=== PATIENT | male | born 1955 | race Caucasian/White ===

== ENCOUNTER 2016-06-12 10:33 | Outpatient (RCR) | payer MEDICAID ==
--- OUTSIDE RECORDS SUMMARY | 2016-03-30 12:31 | XMS REPORT | Continuity of Care Document ---
Author Author [facility] Organization [facility] Address Unknown Phone Unavailable Care Team Providers Care An/Sqq [id number] Sonar System Journeyman Name Role Phone [facility] PCP Insurance Providers Payer Name Policy Number Subscriber Name Relationship [employer] [id number] Evan Martell 20 Self / Same As Patient Advance Directives Directive Response Recorded Date/Time Advance Directives No 08/11/14 5:48am Health Care Power of Supervisor Advice No 08/11/14 5:48am Organ Donor No 08/11/14 5:48am Resuscitation Status Full Code 08/11/14 5:48am Chief Complaint and Reason for Visit Chief Complaint CHEST PAIN W/AMI,LIVER METS Reason for Visit Metastasis to liver with unknown primary site Chest pain Adenocarcinoma Problems Medical Problems Problem Onset Date Status Metastasis to liver with unknown primary site Unknown Active Chest pain Unknown Active Adenocarcinoma 08/16/2014 Active Medications Medication Dose Route Sig Days/Qty Instructions Order Date Discontinued Date Status [None] 06/27/09 08/11/14 Discontinued Amoxicillin 1 Each PO THREE TIMES A DAY 10 Days 09/08/11 08/11/14 Discontinued Butalb/Acetaminophen/Caffeine (Esgic Plus) 1 Each PO Q4HR PRN 10 Qty 08/11/14 Discontinued Omeprazole 20 Mg PO TWICE A DAY 08/13/14 08/16/14 Discontinued [Aspirin] 81 Mg PO DAILY 30 Qty 08/16/14 Active [Atorvastatin Calcium] 80 Mg PO BEDTIME 30 Qty 08/16/14 Active Clopidogrel Bisulfate 75 Mg PO DAILY 30 Qty 08/16/14 Active Metoprolol Tartrate 12.5 Mg PO TWICE A DAY 60 Qty 08/16/14 Active Pantoprazole Sodium 20 Mg PO DAILY 30 Qty 08/16/14 Active Nitroglycerin 0.4 Mg SL DIRECTED 30 Days Take 1 under the tongue for chest pain, may repeat every five minutes 08/16/14 Active Social History Social History Problem Response Recorded Date/Time Alcohol Use Denies Use 08/11/2014 5:47am Recreational Drug Use Y MARIJUANA 08/11/2014 5:47am Recent Foreign Travel No 08/11/2014 5:52am Recent Infectious Disease Exposure No 08/11/2014 5:47am Smoking Status Current Everyday Smoker 08/11/2014 5:45am Do you dip or chew tobacco? No 08/11/2014 5:45am Query Response Start Date Stop Date Smoking Status Current Everyday Smoker Hospital Discharge Instructions Patient Instructions Physician Instructions New, Converted or Re-Newed RX: Other (call in atorvastatin and ASA others would allow me to transmit) Goal/Follow Up Appt: Follow up with Dr. Perea after you have a PET scan and a port placed Follow up with Dr. Jules to have a port placed Discharge Diet: Other Diet (Diet per Dr. Jules) Plan of Care Discharge Date 08/16/14 4:30pm Disposition 30 STILL A PATIENT Instructions/Education Provided Myocardial Infarction (DC) Colonoscopy (DC) Forms Provided PDI Surgical Prescriptions See Medications Section Follow-up Orders PET Whole Body PET Whole Body Referrals MEERA LINDQUIST MD (Unspecified) Address: [address] [place] [address]&[place] [address] Reason(s) for Referral: 08/31/14 2pm Functional Status Query Response Date Recorded Patient Orientation Person Place Time Situation August 16, 2014 6:55pm Comprehension Ability Understands Concepts August 13, 2014 4:47pm Allergies, Adverse Reactions, Alerts Allergen Type Severity Reaction Status Last Updated NKANo Known Allergies Allergy Mild Active 06/27/09 Immunizations Name Given Type influenza, split (incl. purified surface antigen) 08/16/14 Administered influenza, split (incl. purified surface antigen) 08/16/14 Administered Vital Signs Acute Vital Signs Vital Response Date/Time Temperature (Fahrenheit) 97.7 degrees F (97.6 - 99.5) Temperature (Calculated Celsius) 36.37799 degrees C (36.4 - 37.5) Temperature Source Temporal Pulse Rate (adult) 50 bpm (60 - 90) Respiratory Rate 18 bpm (12 - 24) O2 Sat by Pulse Oximetry 99 % (88 - 100) Blood Pressure 112/76 mm Hg Pain Pain Intensity 0 Height (Feet) 6 feet Height (Inches) 1 inches Height (Calculated Centimeters) 185.209571 cm Weight (Pounds) 162 pounds Weight (Ounces) 8.0 oz Weight (Calculated Grams) 18836.965 gm Weight (Calculated Kilograms) 73.743763 kilograms Calculated BMI 20.45 Results Laboratory Results Test Name Result Units Flags Reference Collection Date/Time Result Date/ Time Comments White Blood Count 5.5 10^3/uL 4.3-11.0 08/16/2014 3:39am 08/16/2014 4: 36am Red Blood Count 4.42 10^6/uL 4.35-5.85 08/16/2014 3:39am 08/16/2014 4: 36am Hemoglobin 12.2 G/DL L 13.3-17.7 08/16/2014 3:39am 08/16/2014 4:36am Hematocrit 36 % L 40-54 08/16/2014 3:39am 08/16/2014 4:36am Mean Corpuscular Volume 81 FL 80-99 08/16/2014 3:39am 08/16/2014 4: 36am Mean Corpuscular Hemoglobin 28 PG 25-34 08/16/2014 3:39am 08/16/2014 4: 36am Mean Corpuscular Hemoglobin Concent 34 G/DL 32-36 08/16/2014 3:39am 4:36am Red Cell Distribution Width 12.8 % 10.0-14.5 08/16/2014 3:39am 2014 4:36am Platelet Count 195 10^3/uL 130-400 08/16/2014 3:39am 08/16/2014 4:36am Mean Platelet Volume 12.7 FL H 7.4-10.4 08/16/2014 3:39am 08/16/2014 4: 36am Neutrophils (%) (Auto) 64 % 42-75 08/16/2014 3:3908/16/2014 4:36am Lymphocytes (%) (Auto) 20 % 12-44 08/16/2014 3:39am 08/16/2014 4:36am Monocytes (%) (Auto) 12 % 0-12 08/16/2014 3:3908/16/2014 4:36am Eosinophils (%) (Auto) 4 % 0-10 08/16/2014 3:39am 08/16/2014 4:36am Basophils (%) (Auto) 1 % 0-10 08/16/2014 3:08/16/2014 4:36am Neutrophils # (Auto) 3.5 X 10^3 1.8-7.8 08/16/2014 3:39am 08/16/2014 4: 36am Lymphocytes # (Auto) 1.1 X 10^3 1.0-4.0 08/16/2014 3:39am 08/16/2014 4: 36am Monocytes # (Auto) 0.7 X 10^3 0.0-1.0 08/16/2014 3:39am 08/16/2014 4: 36am Eosinophils # (Auto) 0.2 10^3/uL 0.0-0.3 08/16/2014 3:39am 08/16/2014 4 :36am Basophils # (Auto) 0.0 10^3/uL 0.0-0.1 08/16/2014 3:3908/16/2014 4: 36am Prothrombin Time 13.2 SEC 12.2-14.7 08/12/2014 3:32am 08/12/2014 4: 11am INR Comment 1.0 0.8-1.4 08/12/2014 3:32am 08/12/2014 4:11am INTERPRETIVE DATA SUGGESTED THERAPEUTIC RANGE FOR INR'S: VENOUS THROMBOSIS, PULMONARY EMBOLISM, OR PREVENTION OF SYSTEMIC EMBOLISM (EG. IN ATRIAL FIBRILLATION): 2.0 - 3.0 MECHANICAL PROSTHETIC HEART VALVES: 2.5 - 3.5* *NOTE: INR'S UP TO 4.5 MAY BE NECESSARY IN SELECTED GROUPS OF HIGH RISK PATIENTS. [employer]ST PH[employer]IC[employer] CONSENSUS CONFERENCE ON ANTITHROMBOTIC THERAPY (2000). Activated Partial Thromboplast Time 73 SEC H 24-35 08/12/2014 11:01am 11:29am D-Dimer 1.66 UG/ML H 0.00-0.49 08/11/2014 12:00am 08/11/2014 12:44am Sodium Level 139 MMOL/L 135-145 08/15/2014 11:14am 08/15/2014 11:37am Potassium Level 3.9 MMOL/L 3.6-5.0 08/15/2014 11:14am 08/15/2014 11: 37am Chloride Level 105 MMOL/L 98-107 08/15/2014 11:14am 08/15/2014 11:37am Carbon Dioxide Level 24 MMOL/L 21-32 08/15/2014 11:14am 08/15/2014 11: 37am Blood Urea Nitrogen 12 MG/DL 7-18 08/15/2014 11:14am 08/15/2014 11: 37am Creatinine 0.89 MG/DL 0.60-1.30 08/15/2014 11:14am 08/15/2014 11:37am BUN/Creatinine Ratio 13 08/15/2014 11:14am 08/15/2014 11:37am Estimat Glomerular Filtration Rate > 60 08/15/2014 11:14am 2014 11:37am GFR INTERPRETIVE DATA UNITS FOR ESTIMATED GFR (eGFR): mL/min/1.73 M2 REFERENCE RANGE FOR ESTIMATED GFR (eGFR) eGFR NORMAL eGFR >60 MODERATELY DECREASED eGFR 30-59 SEVERLY DECREASED eGFR 15-29 KIDNEY FAILURE <15 (OR DIALYSIS) Glucose Level 98 MG/DL 70-105 08/15/2014 11:14am 08/15/2014 11:37am Calcium Level 9.0 MG/DL 8.5-10.1 08/15/2014 11:14am 08/15/2014 11:37am Magnesium Level 2.1 MG/DL 1.8-2.4 08/11/2014 12:00am 08/11/2014 12: 44am Total Bilirubin 1.3 MG/DL H 0.1-1.0 08/13/2014 4:50am 08/13/2014 5:31am Alkaline Phosphatase 110 U/L 40-136 08/13/2014 4:50am 08/13/2014 5: 31am Aspartate Amino Transf (AST/SGOT) 58 U/L H 5-34 08/13/2014 4:50am 2014 5:31am Alanine Aminotransferase (ALT/SGPT) 19 U/L 0-55 08/13/2014 4:50am 08/13 5:31am Troponin I 9.19 NG/ML CH <0.30 08/13/2014 4:45pm 08/13/2014 5:14pm RESULT CALLED TO SRIDHAR AT 1715. RESULTS READ BACK: YES. Troponin I < 0.30 NG/ML <0.30 08/11/2014 12:00am 08/11/2014 12:49am Myoglobin 74.1 NG/ML 10.0-92.0 08/11/2014 12:00am 08/11/2014 12:49am Total Protein 6.3 G/DL L 6.4-8.2 08/13/2014 4:50am 08/13/2014 5:31am Albumin 3.6 G/DL 3.2-4.5 08/13/2014 4:50am 08/13/2014 5:31am Triglycerides Level 121 MG/DL <150 08/12/2014 3:32am 08/12/2014 4:14am Cholesterol Level 219 MG/DL H < 200 08/12/2014 3:32am 08/12/2014 4:14am HDL Cholesterol 28 MG/DL L 40-60 08/12/2014 3:32am 08/12/2014 4:14am LDL Cholesterol Direct 186 MG/DL H 1-129 08/12/2014 3:32am 08/12/2014 4: 14am VLDL Cholesterol 24 MG/DL 5-40 08/12/2014 3:32am 08/12/2014 4:14am Lipase 31 U/L 8-78 08/11/2014 12:00am 08/11/2014 1:45am Procedures Procedure Status Date Provider(s) Anesthesia for 30 minutes completed 08/14/14 RUPINDER JULES DO Flexible sigmoidoscopy completed 08/14/14 RUPINDER JULES DO Tracing only of electrocardiogram completed 08/11/14 MEENA ALY DO Tracing only of electrocardiogram completed 08/11/14 MEERA LINDQUIST MD Tracing only of electrocardiogram completed 08/12/14 MEERA LINDQUIST MD Tracing only of electrocardiogram completed 08/12/14 MEERA LINDQUIST MD Tracing only of electrocardiogram completed 08/13/14 MEENA ALY DO Encounters Encounter Location Date/Time Discharged Inpatient Via [facility] 08/11/14 4:15am Recent Diagnosis Metastasis to liver with unknown primary site Chest pain Adenocarcinoma
[2016-03-30 13:03] LABS: BASOPHILS % (AUTO) 1 % (0-10); EOSINOPHILS # (AUTO) 0.2 10^3/uL (0.0-0.3); EOSINOPHILS % (AUTO) 3 % (0-10); LYMPHOCYTES # (AUTO) 1.4 X 10^3 (1.0-4.0); LYMPHOCYTES % (AUTO) 20 % (12-44); MEAN CORPUSCULAR HEMOGLOBIN 29 PG (25-34); MEAN CORPUSCULAR HGB CONC 33 G/DL (32-36); MEAN CORPUSCULAR VOLUME 87 FL (80-99); MEAN PLATELET VOLUME 10.5 FL (7.4-10.4); MONOCYTES # (AUTO) 0.5 X 10^3 (0.0-1.0); MONOCYTES % (AUTO) 7 % (0-12); NEUTROPHILS # (AUTO) 4.7 X 10^3 (1.8-7.8); NEUTROPHILS % (AUTO) 70 % (42-75); PLATELET COUNT 229 10^3/uL (130-400); RED BLOOD COUNT 3.89 10^6/uL (4.35-5.85); WHITE BLOOD COUNT 6.7 10^3/uL (4.3-11.0)
[2016-03-30 13:28] LABS: ALANINE AMINOTRANSFERASE 15 U/L (0-55); ALBUMIN 3.7 G/DL (3.2-4.5); ANION GAP 11 MMOL/L (5-14); ASPARTATE AMINO TRANSFERASE 21 U/L (5-34); BILIRUBIN,TOTAL 0.7 MG/DL (0.1-1.0); BLOOD UREA NITROGEN 11 MG/DL (7-18); BUN/CREATININE RATIO 12; CALCIUM 8.9 MG/DL (8.5-10.1); CARBON DIOXIDE 21 MMOL/L (21-32); CHLORIDE 110 MMOL/L (98-107); CREATININE SERUM 0.89 MG/DL (0.60-1.30); GFR ESTIMATED > 60; GLUCOSE 98 MG/DL (70-105); MAGNESIUM 2.1 MG/DL (1.8-2.4); POTASSIUM 3.8 MMOL/L (3.6-5.0); SODIUM 142 MMOL/L (135-145); TOTAL PROTEIN 5.9 G/DL (6.4-8.2)
[2016-04-06 09:45] LABS: BASOPHILS % (AUTO) 0 % (0-10); EOSINOPHILS # (AUTO) 0.2 10^3/uL (0.0-0.3); EOSINOPHILS % (AUTO) 4 % (0-10); LYMPHOCYTES # (AUTO) 1.3 X 10^3 (1.0-4.0); LYMPHOCYTES % (AUTO) 27 % (12-44); MEAN CORPUSCULAR HEMOGLOBIN 29 PG (25-34); MEAN CORPUSCULAR HGB CONC 33 G/DL (32-36); MEAN CORPUSCULAR VOLUME 88 FL (80-99); MEAN PLATELET VOLUME 10.5 FL (7.4-10.4); MONOCYTES # (AUTO) 0.4 X 10^3 (0.0-1.0); MONOCYTES % (AUTO) 8 % (0-12); NEUTROPHILS # (AUTO) 2.9 X 10^3 (1.8-7.8); NEUTROPHILS % (AUTO) 61 % (42-75); PLATELET COUNT 225 10^3/uL (130-400); RED BLOOD COUNT 4.15 10^6/uL (4.35-5.85); RED CELL DISTRIBUTION WIDTH 17.4 % (10.0-14.5); WHITE BLOOD COUNT 4.8 10^3/uL (4.3-11.0)
[2016-04-06 10:19] LABS: ANION GAP 11 MMOL/L (5-14); BLOOD UREA NITROGEN 14 MG/DL (7-18); BUN/CREATININE RATIO 17; CALCIUM 9.1 MG/DL (8.5-10.1); CARBON DIOXIDE 22 MMOL/L (21-32); CHLORIDE 107 MMOL/L (98-107); CREATININE SERUM 0.81 MG/DL (0.60-1.30); GFR ESTIMATED > 60; GLUCOSE 115 MG/DL (70-105); POTASSIUM 4.2 MMOL/L (3.6-5.0); SODIUM 140 MMOL/L (135-145)
[2016-04-14 09:48] LABS: BASOPHILS % (AUTO) 1 % (0-10); EOSINOPHILS # (AUTO) 0.1 10^3/uL (0.0-0.3); EOSINOPHILS % (AUTO) 2 % (0-10); LYMPHOCYTES # (AUTO) 1.2 X 10^3 (1.0-4.0); LYMPHOCYTES % (AUTO) 21 % (12-44); MEAN CORPUSCULAR HEMOGLOBIN 29 PG (25-34); MEAN CORPUSCULAR HGB CONC 33 G/DL (32-36); MEAN CORPUSCULAR VOLUME 87 FL (80-99); MEAN PLATELET VOLUME 10.2 FL (7.4-10.4); MONOCYTES # (AUTO) 0.5 X 10^3 (0.0-1.0); MONOCYTES % (AUTO) 9 % (0-12); NEUTROPHILS # (AUTO) 3.9 X 10^3 (1.8-7.8); NEUTROPHILS % (AUTO) 67 % (42-75); PLATELET COUNT 248 10^3/uL (130-400); RED BLOOD COUNT 4.08 10^6/uL (4.35-5.85); RED CELL DISTRIBUTION WIDTH 17.5 % (10.0-14.5); WHITE BLOOD COUNT 5.8 10^3/uL (4.3-11.0)
[2016-04-14 10:11] LABS: ALANINE AMINOTRANSFERASE 16 U/L (0-55); ALBUMIN 3.7 G/DL (3.2-4.5); ANION GAP 8 MMOL/L (5-14); ASPARTATE AMINO TRANSFERASE 18 U/L (5-34); BILIRUBIN,TOTAL 0.7 MG/DL (0.1-1.0); BLOOD UREA NITROGEN 11 MG/DL (7-18); BUN/CREATININE RATIO 13; CALCIUM 8.8 MG/DL (8.5-10.1); CARBON DIOXIDE 26 MMOL/L (21-32); CHLORIDE 106 MMOL/L (98-107); CREATININE SERUM 0.83 MG/DL (0.60-1.30); GFR ESTIMATED > 60; GLUCOSE 94 MG/DL (70-105); POTASSIUM 3.7 MMOL/L (3.6-5.0); SODIUM 140 MMOL/L (135-145)
[2016-04-20 10:01] LABS: BASOPHILS % (AUTO) 1 % (0-10); EOSINOPHILS # (AUTO) 0.2 10^3/uL (0.0-0.3); EOSINOPHILS % (AUTO) 4 % (0-10); LYMPHOCYTES # (AUTO) 1.2 X 10^3 (1.0-4.0); LYMPHOCYTES % (AUTO) 32 % (12-44); MEAN CORPUSCULAR HEMOGLOBIN 29 PG (25-34); MEAN CORPUSCULAR HGB CONC 33 G/DL (32-36); MEAN CORPUSCULAR VOLUME 88 FL (80-99); MONOCYTES # (AUTO) 0.2 X 10^3 (0.0-1.0); MONOCYTES % (AUTO) 6 % (0-12); NEUTROPHILS # (AUTO) 2.2 X 10^3 (1.8-7.8); NEUTROPHILS % (AUTO) 58 % (42-75); PLATELET COUNT 235 10^3/uL (130-400); RED BLOOD COUNT 4.21 10^6/uL (4.35-5.85); RED CELL DISTRIBUTION WIDTH 16.7 % (10.0-14.5); WHITE BLOOD COUNT 3.8 10^3/uL (4.3-11.0)
[2016-04-20 11:02] LABS: ANION GAP 7 MMOL/L (5-14); BLOOD UREA NITROGEN 17 MG/DL (7-18); BUN/CREATININE RATIO 21; CALCIUM 9.6 MG/DL (8.5-10.1); CARBON DIOXIDE 27 MMOL/L (21-32); CHLORIDE 107 MMOL/L (98-107); GFR ESTIMATED > 60; GLUCOSE 97 MG/DL (70-105); POTASSIUM 4.7 MMOL/L (3.6-5.0); SODIUM 141 MMOL/L (135-145)
[2016-04-27 09:16] LABS: BASOPHILS % (AUTO) 1 % (0-10); EOSINOPHILS # (AUTO) 0.2 10^3/uL (0.0-0.3); EOSINOPHILS % (AUTO) 2 % (0-10); LYMPHOCYTES # (AUTO) 1.1 X 10^3 (1.0-4.0); LYMPHOCYTES % (AUTO) 16 % (12-44); MEAN CORPUSCULAR HEMOGLOBIN 29 PG (25-34); MEAN CORPUSCULAR HGB CONC 33 G/DL (32-36); MEAN CORPUSCULAR VOLUME 89 FL (80-99); MEAN PLATELET VOLUME 10.9 FL (7.4-10.4); MONOCYTES # (AUTO) 0.4 X 10^3 (0.0-1.0); MONOCYTES % (AUTO) 6 % (0-12); NEUTROPHILS # (AUTO) 4.9 X 10^3 (1.8-7.8); NEUTROPHILS % (AUTO) 76 % (42-75); PLATELET COUNT 221 10^3/uL (130-400); RED BLOOD COUNT 3.88 10^6/uL (4.35-5.85); RED CELL DISTRIBUTION WIDTH 16.9 % (10.0-14.5); WHITE BLOOD COUNT 6.5 10^3/uL (4.3-11.0)
[2016-04-27 09:51] LABS: ALANINE AMINOTRANSFERASE 19 U/L (0-55); ALBUMIN 3.8 G/DL (3.2-4.5); ANION GAP 5 MMOL/L (5-14); ASPARTATE AMINO TRANSFERASE 19 U/L (5-34); BILIRUBIN,TOTAL 0.5 MG/DL (0.1-1.0); BLOOD UREA NITROGEN 13 MG/DL (7-18); BUN/CREATININE RATIO 16; CALCIUM 8.9 MG/DL (8.5-10.1); CARBON DIOXIDE 28 MMOL/L (21-32); CHLORIDE 109 MMOL/L (98-107); CREATININE SERUM 0.82 MG/DL (0.60-1.30); GFR ESTIMATED > 60; GLUCOSE 137 MG/DL (70-105); MAGNESIUM 2.1 MG/DL (1.8-2.4); POTASSIUM 3.6 MMOL/L (3.6-5.0); SODIUM 142 MMOL/L (135-145); TOTAL PROTEIN 6.1 G/DL (6.4-8.2)
[~2016-06-12] VITALS: Ht 185.4 cm; Wt 64.9 kg
[~2016-06-12 10:33] MED LIST: AMOX500C2 PO; ATROPINE INJ 0.4 MG/ML SDV (CANCER CENTER) IV SCH; Aspirin PO; Atorvastatin Calcium PO; BUTA1TAB55 PO; CLPD75T PO; D5W IV SCH; DEXAMETHASONE IV SCH; FAMOTIDINE 20MG/2ML IV (CANCER CTR) IV SCH; FOSAPREPITANT DIMEGLUMINE 150 MG in NS (IVPB) CANCER CENTER ONLY 150 ML IV PRN; IRINOTECAN HCL IV SCH; LEUCOVORIN CALCIUM IV SCH; METO25TA2 PO; NITR0.4T3 SL; NS IV 1000 ML (CANCER CTR) IV SCH; OMEP20CA12 PO; ONDANSETRON IV SCH; PALONOSETRON HCL 0.25 MG, DEXAMETHASONE PF INJECTION 10 MG in NS (IVPB) 50 ML IV PRN; PANT20TA PO; [UNRECOGNIZED DRUG - OTHER] IV SCH
== END 2016-06-28 | disposition home or self-care (01) ==
LOC: ONC 10:33
PROVIDERS: ATTEND Internal Medicine Hematology & Oncology
DX: Z51.11 Encounter for antineoplastic chemotherapy (principal); C18.7 Malignant neoplasm of sigmoid colon; C78.7 Secondary malignant neoplasm of liver and intrahepatic bile duct; I10 Essential (primary) hypertension; E78.5 Hyperlipidemia, unspecified; F17.200 Nicotine dependence, unspecified, uncomplicated; Z79.899 Other long term (current) drug therapy; Z45.2 Encounter for adjustment and management of vascular access device
CPT/HCPCS: 36415; 36591; 80048; 80053; 82378; 83735; 85025; 96367; 96368; 96375; 96413; 96415; 96521; 96523; 99213

== ENCOUNTER 2016-09-22 10:06 | Outpatient (RCR) | payer MEDICAID ==
--- OUTSIDE RECORDS SUMMARY | 2016-07-13 11:30 | XMS REPORT | Continuity of Care Document ---
Author Author [facility] Organization [facility] Address Unknown Phone Unavailable Care Team Providers Care .Net Developer Name Role Phone [facility] PCP Insurance Providers Payer Name Policy Number Subscriber Name Relationship [employer] [id number] Evan Martell 20 Self / Same As Patient Advance Directives Directive Response Recorded Date/Time Advance Directives No 08/11/14 5:48am Health Care Power of Lumber Sticker No 08/11/14 5:48am Organ Donor No 08/11/14 [...] Body Referrals MEERA LINDQUIST MD (Unspecified) Address: [address] [place] [address]&[place] [address] Reason(s) for Referral: 08/31/14 2pm [...] F (97.6 - 99.5) Temperature (Calculated Celsius) 36.39577 degrees C (36.4 - 37.5) Temperature Source Temporal Pulse Rate (adult) 50 bpm (60 - 90) Respiratory Rate 18 bpm (12 - 24) O2 Sat by Pulse Oximetry 99 % (88 - 100) Blood Pressure 112/76 mm Hg Pain Pain Intensity 0 Height (Feet) 6 feet Height (Inches) 1 inches Height (Calculated Centimeters) 185.459279 cm Weight (Pounds) 162 pounds Weight (Ounces) 8.0 oz Weight (Calculated Grams) 69633.965 gm Weight (Calculated Kilograms) 73.224203 kilograms Calculated BMI 20.45 Results Laboratory Results [...] SELECTED GROUPS OF HIGH RISK PATIENTS. [employer] CONSENSUS CONFERENCE ON [...] Encounters Encounter Location Date/Time Discharged Inpatient Via [facility] 08/11/14 4:15am Recent Diagnosis Metastasis to liver with unknown primary site Chest pain Adenocarcinoma
[2016-08-19 16:08] LABS: BASOPHILS % (AUTO) 0 % (0-10); EOSINOPHILS # (AUTO) 0.1 10^3/uL (0.0-0.3); EOSINOPHILS % (AUTO) 1 % (0-10); LYMPHOCYTES # (AUTO) 1.2 X 10^3 (1.0-4.0); LYMPHOCYTES % (AUTO) 13 % (12-44); MEAN CORPUSCULAR HEMOGLOBIN 26 PG (25-34); MEAN CORPUSCULAR HGB CONC 33 G/DL (32-36); MEAN CORPUSCULAR VOLUME 78 FL (80-99); MEAN PLATELET VOLUME 10.8 FL (7.4-10.4); MONOCYTES # (AUTO) 1.1 X 10^3 (0.0-1.0); MONOCYTES % (AUTO) 12 % (0-12); NEUTROPHILS # (AUTO) 6.7 X 10^3 (1.8-7.8); NEUTROPHILS % (AUTO) 74 % (42-75); PLATELET COUNT 347 10^3/uL (130-400); RED BLOOD COUNT 5.19 10^6/uL (4.35-5.85); RED CELL DISTRIBUTION WIDTH 15.3 % (10.0-14.5)
[2016-08-19 16:31] LABS: ALANINE AMINOTRANSFERASE 15 U/L (0-55); ALBUMIN 4.1 G/DL (3.2-4.5); ANION GAP 16 MMOL/L (5-14); ASPARTATE AMINO TRANSFERASE 38 U/L (5-34); BILIRUBIN,TOTAL 1.4 MG/DL (0.1-1.0); BLOOD UREA NITROGEN 21 MG/DL (7-18); BUN/CREATININE RATIO 24; CALCIUM 9.8 MG/DL (8.5-10.1); CARBON DIOXIDE 26 MMOL/L (21-32); CHLORIDE 95 MMOL/L (98-107); CREATININE SERUM 0.86 MG/DL (0.60-1.30); GFR ESTIMATED > 60; GLUCOSE 84 MG/DL (70-105); MAGNESIUM 1.9 MG/DL (1.8-2.4); POTASSIUM 4.1 MMOL/L (3.6-5.0); SODIUM 137 MMOL/L (135-145); TOTAL PROTEIN 7.4 G/DL (6.4-8.2)
[~2016-09-22 10:06] MED LIST changes: -ATROPINE INJ 0.4 MG/ML SDV (CANCER CENTER) IV SCH; -D5W IV SCH; -DEXAMETHASONE IV SCH; -FAMOTIDINE 20MG/2ML IV (CANCER CTR) IV SCH; -FOSAPREPITANT DIMEGLUMINE 150 MG in NS (IVPB) CANCER CENTER ONLY 150 ML IV PRN; -IRINOTECAN HCL IV SCH; -LEUCOVORIN CALCIUM IV SCH; +NS IV 1000 ML (CANCER CTR) 1,000 ML IV NR; +NS IV 1000 ML (CANCER CTR) 1,000 ML ONE; -NS IV 1000 ML (CANCER CTR) IV SCH; -ONDANSETRON IV SCH; +ONDANSETRON MDV (CANCER CENTER 8 MG, DEXAMETHASONE INJ (CANCER CTR) 4 MG in NS (IVPB) C... IV NR; -PALONOSETRON HCL 0.25 MG, DEXAMETHASONE PF INJECTION 10 MG in NS (IVPB) 50 ML IV PRN; -[UNRECOGNIZED DRUG - OTHER] IV SCH; +morphine INJ 10 MG/ML 1ML (CANCER CENTER) IV PRN; +morphine INJ 4 MG/ML 1 ML (CANCER CTR) ONE
[2016-09-22 10:28] LABS: BASOPHILS % (AUTO) 1 % (0-10); EOSINOPHILS # (AUTO) 0.1 10^3/uL (0.0-0.3); EOSINOPHILS % (AUTO) 1 % (0-10); LYMPHOCYTES # (AUTO) 0.9 X 10^3 (1.0-4.0); LYMPHOCYTES % (AUTO) 11 % (12-44); MEAN CORPUSCULAR HEMOGLOBIN 26 PG (25-34); MEAN CORPUSCULAR HGB CONC 32 G/DL (32-36); MEAN CORPUSCULAR VOLUME 80 FL (80-99); MEAN PLATELET VOLUME 10.9 FL (7.4-10.4); MONOCYTES # (AUTO) 0.8 X 10^3 (0.0-1.0); MONOCYTES % (AUTO) 10 % (0-12); NEUTROPHILS # (AUTO) 6.3 X 10^3 (1.8-7.8); NEUTROPHILS % (AUTO) 78 % (42-75); PLATELET COUNT 248 10^3/uL (130-400); RED BLOOD COUNT 4.53 10^6/uL (4.35-5.85); RED CELL DISTRIBUTION WIDTH 17.3 % (10.0-14.5); WHITE BLOOD COUNT 8.1 10^3/uL (4.3-11.0)
[2016-09-22 11:07] LABS: ALANINE AMINOTRANSFERASE 20 U/L (0-55); ALBUMIN 3.4 G/DL (3.2-4.5); ANION GAP 11 MMOL/L (5-14); ASPARTATE AMINO TRANSFERASE 45 U/L (5-34); BILIRUBIN,TOTAL 0.9 MG/DL (0.1-1.0); BLOOD UREA NITROGEN 16 MG/DL (7-18); BUN/CREATININE RATIO 20; CARBON DIOXIDE 27 MMOL/L (21-32); CHLORIDE 101 MMOL/L (98-107); GFR ESTIMATED > 60; GLUCOSE 133 MG/DL (70-105); POTASSIUM 3.8 MMOL/L (3.6-5.0); SODIUM 139 MMOL/L (135-145); TOTAL PROTEIN 6.3 G/DL (6.4-8.2)
== END 2016-10-11 | disposition home or self-care (01) ==
LOC: ONC 10:06
PROVIDERS: ATTEND Internal Medicine Hematology & Oncology
DX: C18.7 Malignant neoplasm of sigmoid colon (principal); C78.7 Secondary malignant neoplasm of liver and intrahepatic bile duct; I10 Essential (primary) hypertension; E78.5 Hyperlipidemia, unspecified; F17.200 Nicotine dependence, unspecified, uncomplicated; Z79.899 Other long term (current) drug therapy; Z45.2 Encounter for adjustment and management of vascular access device
CPT/HCPCS: 36591; 80053; 82378; 83735; 85025; 96361; 96374; 96375; 96523; 99213

== ENCOUNTER 2016-10-20 10:49 | Outpatient (RCR) | payer MEDICAID ==
[~2016-10-20 10:49] MED LIST changes: -NS IV 1000 ML (CANCER CTR) 1,000 ML IV NR; -NS IV 1000 ML (CANCER CTR) 1,000 ML ONE; -ONDANSETRON MDV (CANCER CENTER 8 MG, DEXAMETHASONE INJ (CANCER CTR) 4 MG in NS (IVPB) C... IV NR; -morphine INJ 10 MG/ML 1ML (CANCER CENTER) IV PRN; -morphine INJ 4 MG/ML 1 ML (CANCER CTR) ONE
[2016-10-20 11:10] LABS: BASOPHILS % (AUTO) 0 % (0-10); EOSINOPHILS % (AUTO) 0 % (0-10); LYMPHOCYTES # (AUTO) 0.9 X 10^3 (1.0-4.0); LYMPHOCYTES % (AUTO) 7 % (12-44); MEAN CORPUSCULAR HEMOGLOBIN 26 PG (25-34); MEAN CORPUSCULAR HGB CONC 32 G/DL (32-36); MEAN CORPUSCULAR VOLUME 80 FL (80-99); MEAN PLATELET VOLUME 10.7 FL (7.4-10.4); MONOCYTES # (AUTO) 1.1 X 10^3 (0.0-1.0); MONOCYTES % (AUTO) 10 % (0-12); NEUTROPHILS # (AUTO) 9.5 X 10^3 (1.8-7.8); NEUTROPHILS % (AUTO) 82 % (42-75); PLATELET COUNT 320 10^3/uL (130-400); RED BLOOD COUNT 4.57 10^6/uL (4.35-5.85); RED CELL DISTRIBUTION WIDTH 18.2 % (10.0-14.5); WHITE BLOOD COUNT 11.5 10^3/uL (4.3-11.0)
[2016-10-20 11:34] LABS: ALANINE AMINOTRANSFERASE 35 U/L (0-55); ALBUMIN 3.1 G/DL (3.2-4.5); ANION GAP 13 MMOL/L (5-14); ASPARTATE AMINO TRANSFERASE 76 U/L (5-34); BILIRUBIN,TOTAL 3.1 MG/DL (0.1-1.0); BLOOD UREA NITROGEN 20 MG/DL (7-18); BUN/CREATININE RATIO 20; CARBON DIOXIDE 27 MMOL/L (21-32); CHLORIDE 95 MMOL/L (98-107); GFR ESTIMATED > 60; GLUCOSE 136 MG/DL (70-105); SODIUM 135 MMOL/L (135-145)
[2016-10-20] MEDS ORDERED: ONDANSETRON 8 MG, DEXAMETHASONE 4 MG/NS 50 ML IVPB (Cancer Ctr) IV SCH ×3 (12:00)
== END 2017-01-18 | disposition home or self-care (01) ==
LOC: ONC 10:49
PROVIDERS: ATTEND Internal Medicine Hematology & Oncology
DX: C18.7 Malignant neoplasm of sigmoid colon (principal); C78.7 Secondary malignant neoplasm of liver and intrahepatic bile duct; I10 Essential (primary) hypertension; E78.5 Hyperlipidemia, unspecified; F17.200 Nicotine dependence, unspecified, uncomplicated; Z79.899 Other long term (current) drug therapy
CPT/HCPCS: 36591; 80053; 82378; 85025; 96361; 96374; 99213